=== PATIENT | male | born 1975 | race Caucasian/White ===

== ENCOUNTER 2019-04-03 07:38 | Day surgery (SDC) | payer BC ==
[~2019-04-03] VITALS: Ht 185.4 cm; Wt 101.0 kg
[~2019-04-03 07:38] MED LIST: DULERA 100 MCG/13 GM INH; EPIPEN0.3 MG/0.3; FLONASE ALLERG9.9 ML; FLURBIPROFEN PO; HYDACE5 PO; OMEP20ER PO
[2019-04-03] MEDS ORDERED: ZYRTEC10 M1 PO (08:10)
[2019-04-03] MEDS ORDERED: BUDE6HFA (08:11)
[2019-04-03] MEDS ORDERED: BUDE.25 (08:11)
[2019-04-03] MEDS ORDERED: CLAR500 PO (08:11)
[2019-04-03] MEDS ORDERED: PRED20 PO (08:11)
--- NOTE | 2019-04-03 12:45 | NUR ---
04/03/19 Sancho Pelayo LAST PAIN ASSESSMENT PATIENT REPORTS 3-4/10 PAIN AND IS TOLERABLE. PATIENT DECLINED MEDS AT THIS TIME.
== END 2019-04-03 12:30 | disposition home or self-care (01) ==
LOC: ORSCSDS 07:38
PROVIDERS: Otolaryngology
PROC: 09DU4ZZ Extraction of Right Ethmoid Sinus, Percutaneous Endoscopic Approach (ICD-10-PCS; principal; 2019-04-03 09:00)
PROC: 8E09XBZ Computer Assisted Procedure of Head and Neck Region (ICD-10-PCS; principal; 2019-04-03 09:00)
PROC: 09DV4ZZ Extraction of Left Ethmoid Sinus, Percutaneous Endoscopic Approach (ICD-10-PCS; principal; 2019-04-03 09:00)
DX: J32.4 Chronic pansinusitis (principal); J33.9 Nasal polyp, unspecified; J45.909 Unspecified asthma, uncomplicated; F17.210 Nicotine dependence, cigarettes, uncomplicated; Z79.899 Other long term (current) drug therapy
CPT/HCPCS: 87070; 87075; 87077; 87102; 87147; 87186; 87205; 88305; 88311; 88342; C2625; J0171; J1100; J1885; J2250; J2405; J2704; J2710; J3010; J3301; J7120

== ENCOUNTER 2022-12-02 22:23 | Emergency (ER) | payer OTHER ==
[~2022-12-02] VITALS: Ht 185.4 cm; Wt 104.3 kg
[~2022-12-02 22:23] MED LIST changes: +BUDE.25; +BUDE6HFA; +CLAR500 PO; +PRED20 PO; +ZYRTEC10 M1 PO
[2022-12-02 22:27] VITALS: BP 168/106
[2022-12-03] MEDS ORDERED: FLUT1DIS2 INH (00:45)
[2022-12-03] MEDS ORDERED: ALBU8HFA2 INH (01:38)
== END 2022-12-03 01:46 | disposition home or self-care (01) ==
LOC: ER 22:23
DX: J45.909 Unspecified asthma, uncomplicated (principal); Z79.899 Other long term (current) drug therapy; Z87.891 Personal history of nicotine dependence; Z91.048 Other nonmedicinal substance allergy status
CPT/HCPCS: 94640; 94664; 99284-25; A9270